=== PATIENT | male | born 1950 | race Caucasian/White ===

== ENCOUNTER → 2016-10-15 | Outpatient (CLI) | payer BC | END | disposition home or self-care (01) | LOC: CDC 10:39 | DX: Z01.810 Encounter for preprocedural cardiovascular examination (principal); S83.412D Sprain of medial collateral ligament of left knee, subsequent encounter; S83.242D Other tear of medial meniscus, current injury, left knee, subsequent encounter; M25.562 Pain in left knee | CPT/HCPCS: 93000 ==

== ENCOUNTER → 2017-02-17 | Outpatient (CLI) | payer MEDICARE, BC | END | disposition home or self-care (01) | LOC: CDC | DX: Z01.810 Encounter for preprocedural cardiovascular examination (principal) | CPT/HCPCS: 93000 ==

== ENCOUNTER 2017-03-16 16:41 | Emergency (ER) | payer OTHER, BC ==
[~2017-03-16] VITALS: Ht 165.1 cm; Wt 84.1 kg
[2017-03-16 17:48] LABS: HEMATOCRIT 47.7 % (38.0-50.0); MCHC 33.3 G/DL (30.0-36.0); MEAN PLAT.VOLUME 10.1 uM^3 (9.0-12.4); PLATELET COUNT 281 K/uL (156-360); RBC DIS.WIDTH-CV 12.6 % (11.8-14.6); RBC DIS.WIDTH-SD 41.6 % (39-53)
[2017-03-16 17:59] LABS: PROTHROMBIN TIME 10.8 SEC (10.2-12.9)
[2017-03-16 18:00] LABS: CHLORIDE 106 mEq/L (99-109); POTASSIUM 3.9 mEq/L (3.7-5.4); SODIUM 143 mEq/L (136-147)
[2017-03-16 18:02] LABS: GLUCOSE 157 mg/dL (70-99); PTT 31.2 SEC (25-37)
[2017-03-16 18:03] LABS: ANION GAP 13 MEQ/L (2-14)
[2017-03-16 18:06] LABS: GFR ESTIMATE (CALCULATED) > 59 mL/min/
[2017-03-16 18:07] LABS: UREA NITROGEN (BUN) 15 mg/dL (9-23)
[2017-03-16 19:03] VITALS: BP 148/80
== END 2017-03-16 19:04 | disposition home or self-care (01) ==
LOC: EME 16:41
PROVIDERS: Physician Assistant
DX: M71.22 Synovial cyst of popliteal space [Baker], left knee (principal); G89.18 Other acute postprocedural pain; M79.89 Other specified soft tissue disorders; Z98.890 Other specified postprocedural states
CPT/HCPCS: 80048; 85027; 85610; 85730; 93971; 99281; 99282

== ENCOUNTER → 2017-08-30 | Outpatient (CLI) | payer MEDICARE, BC | END | disposition home or self-care (01) | LOC: CDC 09:32 | DX: Z01.810 Encounter for preprocedural cardiovascular examination (principal); M65.352 Trigger finger, left little finger; M65.342 Trigger finger, left ring finger; M65.332 Trigger finger, left middle finger | CPT/HCPCS: 93000 ==